=== PATIENT | male | born 1975 | race Two or more races ===

== ENCOUNTER 2022-01-15 06:00 | Outpatient (CLI) | payer OTHER ==
--- NOTE | 2022-01-15 12:22 | XRAY Report ---
PROCEDURE: Shoulder 3 View LT INDICATIONS: SHOULDER PAIN TECHNIQUE: 4 views of the shoulder were acquired. COMPARISON: None. FINDINGS: Bones: No fractures or dislocations. No suspicious bony lesions. Mild acromioclavicular and glenoh umeral joint degeneration. Visualized ribs appear intact. Soft tissues: No suspicious soft tissue calcifications. IMPRESSION: Mild osteoarthritis. Reviewed by: Rere Romero MD on 01/15/2022 12:21 PM PDT Approved by: Rere Romero MD on 01/15/2022 12:21 PM PDT Station ID: [id number]
== END 2022-01-15 23:59 | disposition home or self-care (01) ==
LOC: DI.WOS 06:00
PROVIDERS: ATTEND Orthopaedic Surgery
DX: M19.012 Primary osteoarthritis, left shoulder (principal)